=== PATIENT | female | born 1980 | race Caucasian/White ===

== ENCOUNTER 2016-12-23 04:18 | Inpatient (IN) | payer SELFPAY ==
[~2016-12-23] VITALS: Ht 172.7 cm; Wt 73.2 kg
[2016-12-23] VITALS (20 sets, daily range): BP systolic 71–106; BP diastolic 42–66
[~2016-12-23 04:18] MED LIST: CEFTIN500 MG PO; PERCOCET1 TA1 PO; PREDNISONE20 MG PO
--- NOTE | 2016-12-23 05:48 | ED ORDER SUMMARY ---
..... Patient: MARTA GREGORY OrderSheet [facility] VisitID: [id number] [address] [place] [address] 36y, F Registration Date/Time: 12/23/2016 ORDER SHEET Weight: 66.2 kg (stated) Allergies: No Known Drug Allergy GENERAL ORDERS: Chest 2V Urgent (04:32 12/23/2016 [facility] (Ack 4:39 CHategekimana) (5:54 JQuivey R.N.) Weave Defect Charting Clerk (Continuous) (04:12/23/2016 [facility]) (5:05 JQuivey R.N.) UA-Culture if indicated Urgent (04:12/23/2016 [facility] (Ack 4:37 CHategekimana) (5:05 JQuivey R.N.) Cardiac Panel Stat (04:12/23/2016 [facility] (Ack 4:37 CHategekimana) (5:05 JQuivey R.N.) BNP Urgent (04:12/23/2016 PHidchinson DO) (Ack 4:37 CHategekimana) (5:05 JQuivey R.N.) D-Dimer Urgent (04:12/[facility]/2016 [facility] (Ack 4:38 CHategekimana) (5:05 JQuivey R.N.) Amylase Urgent (04:12/23/2016 [facility] (Ack 4:38 CHategekimana) (5:05 JQuivey R.N.) TSH Urgent (04:12/23/2016 PHidchinson DO) (Ack 4:38 CHategekimana) (5:05 JQuivey R.N.) Ethyl Alcohol Urgent (04:12/23/2016 [facility] (Ack 4:39 CHategekimana) (5:05 JQuivey R.N.) Urine Drug Screen Urgent (04:12/23/2016 [facility]) (Ack 4:39 CHategekimana) (5:05 JQuivey R.N.) Urine Urgent (04:33 12/23/2016 [facility] (Ack 4:39 CHategekimana) (5:05 JQuivey R.N.) Pulse oximeter (04:33 12/23/2016 [facility]) (5:05 JQuivey R.N.) EKG - ER Stat (04:33 12/23/2016 [facility]) (Ack 4:37 CHategekimana) (4:56 [facility] ER V Belt Coverer) Vitals (04:33 12/23/2016 [facility]) (4:40 JQuivey R.N.) Rapid Influenza Screen (Nasal Pharyngeal) (BACK OFFICE MEDICAL ASSISTANT swab) Urgent (04:38 12/23/2016 [facility]) (Ack 4:39 CHategekimana) (4:40 JQuivey R.N.) Blood Culture (No) (N/A) Urgent (05:27 12/23/2016 [facility]) (Ack 5:30 CHategekimana) (6:08 [facility] ESR Urgent (05:28 12/23/2016 [facility]) (Ack 5:30 CHategekimana) (5:54 JQuivey R.N.) CRP Urgent (05:28 12/23/2016 [facility]) (Ack 5:31 CHategekimana) (5:54 JQuivey R.N.) Call (Place call to): (Dr Loera) (05:54 12/23/2016 [facility]) (6:11 JQuivey R.N.) Call (Place call to): (Dr Pelayo) (07:33 12/23/2016 [facility]) (7:45 LNations ER Tech1) Lactate, Serum Urgent (07:36 12/23/2016 [facility]) (Ack 7:43 LNations ER Tech1) PCT (Procalcitonin) Urgent (07:36 12/23/2016 [facility]) (Ack 7:43 LNations ER Tech1) MEDICATION ORDERS: DuoNeb Neb Tx 1 unit dose (NOW) (05:51 12/23/2016 [facility]) (6:10 Tobias ER V Belt Coverer) Acetaminophen PO 1,000 mg (NOW) (08:13 12/23/2016 [facility]) (8:27 LWhalen R.N.) Levophed Drip IV : 0.5-12 mcg/min (09:31 12/23/2016 [facility]) (10:22 LWhalen R.N.) IV FLUIDS: IV NS : initial bolus 1000 mL (1000 mL/hr), then 250 mL/hr for X4 (NOW) (04:32 12/23/2016 [facility]) (Ack 4:43 JQuivey R.N.) (4:58 JQuivey R.N.) Zofran IV 4 mg (NOW) (04:33 12/23/2016 [facility]) (Ack 4:43 JQuivey R.N.) (4:58 JQuivey R.N.) Dilaudid IV 1 mg (NOW) (04:42 12/23/2016 [facility]) (Ack 4:43 JQuivey R.N.) (4:58 JQuivey R.N.) Dilaudid IV 0.5 mg (HIGH ALERT MEDICATION, NOW) (05:26 12/23/2016 [facility]) (Ack 5:27 JQuivey R.N.) (5:32 JQuivey R.N.) Ceftriaxone IV 2 gm/50mL (after blood cultures) (05:30 12/23/2016 [facility]) (Ack 5:32 JQuivey R.N.) (6:13 JQuivey R.N.) Azithromycin IV 500 mg/250 mL (NOW) (05:47 12/23/2016 [facility]) (Ack 5:57 JQuivey R.N.) (6:36 JQuivey R.N.) Dilaudid IV 0.5 mg (HIGH ALERT MEDICATION, NOW) (07:36 12/23/2016 [facility]) (Ack 8:50 LWhalen R.N.) (Cancelled: low bp10:23 LWhalen R.N.) ORDER SHEET NOTES: [Electronically signed by Philippe Suazo DO (09:56 12/23/2016)] [Electronically signed by Sho Tidwell R.N. (18:37 12/23/2016)] [Electronically locked/signed by Sho Tidwell R.N. (18:37 12/23/2016)]
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
--- NOTE | 2016-12-23 05:48 | ED ORDER SUMMARY ---
..... Patient: MARTA GREGORY OrderSheet [facility] VisitID: [id number] [address] [place] [address] 36y, F Registration Date/Time: 12/23/2016 ORDER SHEET Weight: 66.2 kg (stated) Allergies: No Known Drug Allergy GENERAL ORDERS: Chest 2V Urgent (04:32 12/23/2016 [facility] (Ack 4:39 CHategekimana) (5:54 JQuivey R.N.) Side Trimmer (Continuous) (04:12/23/2016 [facility] (5:05 JQuivey R.N.) UA-Culture if indicated Urgent (04:12/23/2016 [facility] (Ack 4:37 CHategekimana) (5:05 JQuivey R.N.) Cardiac Panel Stat (04:12/23/2016 [facility]) (Ack 4:37 CHategekimana) (5:05 JQuivey R.N.) BNP Urgent (04:12/23/2016 PHnhchinson DO) (Ack 4:37 CHategekimana) (5:05 JQuivey R.N.) D-Dimer Urgent (04:12/23/2016 [facility] (Ack 4:38 CHategekimana) (5:05 JQuivey R.N.) Amylase Urgent (04:12/23/2016 [facility] (Ack 4:38 CHategekimana) (5:05 JQuivey R.N.) TSH Urgent (04:12/23/2016 PHnhchinson DO) (Ack 4:38 CHategekimana) (5:05 JQuivey R.N.) Ethyl Alcohol Urgent (04:12/23/2016 [facility]) (Ack 4:39 CHategekimana) (5:05 JQuivey R.N.) Urine Drug Screen Urgent (04:12/23/2016 [facility] (Ack 4:39 CHategekimana) (5:05 JQuivey R.N.) Urine Urgent (04:33 12/23/2016 [facility] (Ack 4:39 CHategekimana) (5:05 JQuivey R.N.) Pulse oximeter (04:33 12/23/2016 [facility]) (5:05 JQuivey R.N.) EKG - ER Stat (04:33 12/23/2016 [facility]) (Ack 4:37 CHategekimana) (4:56 [facility] ER Rice Dryer Mechanic) Vitals (04:33 12/23/2016 [facility]) (4:40 JQuivey R.N.) Rapid Influenza Screen (Nasal Pharyngeal) (EMT P swab) Urgent (04:38 12/23/2016 [facility]) (Ack 4:39 CHategekimana) (4:40 JQuivey R.N.) Blood Culture (No) (N/A) Urgent (05:27 12/23/2016 [facility]) (Ack 5:30 CHategekimana) (6:08 [facility] Rice Dryer Mechanic[facility] ESR Urgent (05:28 12/23/2016 [facility]) (Ack 5:30 CHategekimana) (5:54 JQuivey R.N.) CRP Urgent (05:28 12/23/2016 [facility]) (Ack 5:31 CHategekimana) (5:54 JQuivey R.N.) Call (Place call to): (Dr Loera) (05:54 12/23/2016 [facility]) (6:11 JQuivey R.N.) Call (Place call to): (Dr Pelayo) (07:33 12/23/2016 [facility]) (7:45 LNations ER Tech1) Lactate, Serum Urgent (07:36 12/23/2016 [facility]) (Ack 7:43 LNations ER Tech1) PCT (Procalcitonin) Urgent (07:36 12/23/2016 [facility]) (Ack 7:43 LNations ER Tech1) MEDICATION ORDERS: DuoNeb Neb Tx 1 unit dose (NOW) (05:51 12/23/2016 [facility]) (6:10 Tobias ER Rice Dryer Mechanic) Acetaminophen PO 1,000 mg (NOW) (08:13 12/23/2016 [facility]) (8:27 LWhalen R.N.) Levophed Drip IV : 0.5-12 mcg/min (09:31 12/23/2016 [facility]) (10:22 LWhalen R.N.) IV FLUIDS: IV NS : initial bolus 1000 mL (1000 mL/hr), then 250 mL/hr for X4 (NOW) (04:32 12/23/2016 [facility]) (Ack 4:43 JQuivey R.N.) (4:58 JQuivey R.N.) Zofran IV 4 mg (NOW) (04:33 12/23/2016 [facility]) (Ack 4:43 JQuivey R.N.) (4:58 JQuivey R.N.) Dilaudid IV 1 mg (NOW) (04:42 12/23/2016 [facility]) (Ack 4:43 JQuivey R.N.) (4:58 JQuivey R.N.) Dilaudid IV 0.5 mg (HIGH ALERT MEDICATION, NOW) (05:26 12/23/2016 [facility]) (Ack 5:27 JQuivey R.N.) (5:32 JQuivey R.N.) Ceftriaxone IV 2 gm/50mL (after blood cultures) (05:30 12/23/2016 [facility]) (Ack 5:32 JQuivey R.N.) (6:13 JQuivey R.N.) Azithromycin IV 500 mg/250 mL (NOW) (05:47 12/23/2016 [facility]) (Ack 5:57 JQuivey R.N.) (6:36 JQuivey R.N.) Dilaudid IV 0.5 mg (HIGH ALERT MEDICATION, NOW) (07:36 12/23/2016 [facility]) (Ack 8:50 LWhalen R.N.) (Cancelled: low bp10:23 LWhalen R.N.) ORDER SHEET NOTES: [Electronically signed by Philippe Suazo DO (09:56 12/23/2016)] [Electronically signed by Sho Tidwell R.N. (18:37 12/23/2016)] [Electronically locked/signed by Sho Tidwell R.N. (18:37 12/23/2016)]
--- NOTE | 2016-12-23 05:48 | ED NURSING NOTES ---
Clinical Report - Nurses [facility] [address] [place] [address] 12/23/2016 4:18 Patient: MARTA GREGORY TRIAGE Triage time 04:26. Acuity: LEVEL 3. Chief Complaint: CHILLS, HEADACHE, NASAL CONGESTION, CHEST PAIN and COUGH (bilateral shoulder pain). 04:31. Alert. SEPSIS SCREEN: Sepsis Screen. Negative (no infection suspected/documented). DEBI COMA SCORE: Debi Coma Scale: 15- eyes open spontaneously (4); best verbal response- oriented x 4 (5); best motor response- obeys commands (6). --04:31 Felipe Verma R.N. 04:26 12/23/16. BP: 99/83. HR: 113. RR: 28. O2 saturation: 100% on room air. Temp: 97.7 F (oral). Pain level now: 07/14. --04:31 Felipe Verma R.N. Weight: 66.2 kg stated. Height/Length: 69 inches Per Patient. BMI: 21.6. --04:30 Felipe Verma R.N. Medications None. --04:30 Felipe Verma R.N. Medication/allergy information source: the patient. --04:31 Felipe Verma R.N. Allergies No Known Drug Allergy. --04:30 Felipe Verma R.N. History Arrived by private vehicle. Historian: patient. Accompanied by friend. Primary physician (None). Onset. (Saturday). Treatment [employer]: Took Tylenol and ibuprofen. (Gabapentin, Methacarbamol). PAST MEDICAL HX: Immunizations: up-to-date. Last normal menstrual period was 3 weeks ago. SOCIAL HX: Current every day light tobacco smoker- less than 1/2 a pack per day. Occasional alcohol use. No drug use. No infectious disease exposure. ABUSE ASSESSMENT: No report of abuse. FALL RISK ASSESSMENT: Fall risk assessment completed. No fall risk identified. NUTRITIONAL RISK ASSESSMENT: The nutritional risk assessment revealed no deficiencies. FUNCTIONAL ASSESSMENT: Functional assessment: no impairments noted. LEARNING NEEDS ASSESSMENT: The learning needs assessment revealed no barriers. SKIN INTEGRITY ASSESSMENT: Skin integrity risk assessment completed. No skin integrity risk identified. --04:31 Felipe Verma R.N. PROBLEMS: Pneumonia. Rhabdomyolysis. Sciatica. Cervical Strain. Myofascial Strain. Pyelonephritis. --04:30 Felipe Verma R.N. ADDITIONAL SURGERIES: no known surgeries. Interventions ID band on patient. To treatment room. --04:31 Felipe Verma R.N. PHYSICAL ASSESSMENT 04:32. To room via wheelchair. Patient gowned. GENERAL / NEURO / PSYCH: Alert. Oriented X 4. HEENT: No facial asymmetry noted. Mucous membranes are pink. RESPIRATORY: Respirations not labored. SKIN: Skin intact. Skin is warm and dry. Normal skin turgor. --04:32 Felipe Verma R.N. NURSING PROGRESS NOTES 04:32. Head of bed elevated. Two patient identifiers checked. Call light placed in reach. Bed placed in lowest position. Brakes of bed on. Patient ready for evaluation- chart flagged. --04:32 Felipe Verma R.N. 04:45 Patient to restroom to provide urine sample. --04:46 Felipe Verma R.N. 04:46. Patient ID band checked for patient name and birthdate: patient confirmed. Clean catch urine collected with return of yellow-colored cloudy urine; sample sent to lab for urinalysis. Specimen labeled in the presence of the patient. --04:49 Felipe Verma R.N. 04:50 12/23/2016 Site #1 started via IV in the right antecubital space with an 20g angiocath, with aseptic technique and good blood return; one attempt. Blood drawn: rainbow set. Labeled in the presence of the patient and sent to the lab. --04:55 Felipe Verma R.N. <<STRICKEN ENTRY-- 04:51 12/23/2016 Started bag #1 1000 mL IV Fluids IV NS (Saline); at 1000 mL/hr over 2 hour(s) via site #1 via IV pump. IV patency established. IV site checked: no pain, redness, or swelling. IV flushed thoroughly pre- and post-medication administration. --04:58 Felipe Verma R.N. --END STRIKE>> Correction. --06:43 Felipe Verma R.N. 04:52 12/23/2016 Zofran (Ondansetron HCl) IVP 4 mg given over 2 minute(s) via site #1. Allergies verified and confirmed 5 rights. IV patency established. IV site checked: no pain, redness, or swelling. IV flushed thoroughly pre- and post-medication administration. --04:58 Felipe Verma R.N. 04:54 12/23/2016 Dilaudid (HYDROmorphone HCl PF) IVP 1 mg given over 2 minute(s) via site #1. Allergies verified, confirmed 5 rights and sedative warning given to the patient. IV patency established. IV site checked: no pain, redness, or swelling. IV flushed thoroughly pre- and post-medication administration. --04:58 Felipe Verma R.N. EKG time: (5). EKG was performed by a tech and shown to the ED physician. --05:14 Felipe Verma R.N. 04:51 12/23/2016 Started bag #1 1000 IV Fluids IV NS (Saline); at 1000 mL/hr over 1 hour(s) via site #1 via IV pump. IV patency established. IV site checked: no pain, redness, or swelling. IV flushed thoroughly pre- and post-medication administration. --06:43 Felipe Verma R.N. 05:30 12/23/2016 Dilaudid (HYDROmorphone HCl PF) IVP 0.5 mg given over 2 minute(s) via site #1. Allergies verified, confirmed 5 rights and sedative warning given to the patient. IV patency established. IV site checked: no pain, redness, or swelling. IV flushed thoroughly pre- and post-medication administration. --05:32 Felipe Verma R.N. 05:35. Patient transported to radiology by stretcher with tech. --05:36 Felipe Verma R.N. 05:40. Patient returned from radiology by stretcher with tech. --05:56 Felipe Verma R.N. 05:53. Patient ID band checked for patient name and birthdate: patient confirmed. Blood samples drawn from the right antecubital space peripheral IV site with syringe by nurse ; labeled in presence of the patient and sent to lab: blood culture (1st set). Initial blood discarded and additional blood sent to lab. --05:56 Felipe Verma R.N. 06:02 RT with pt for eval and breathing treatment. --06:07 Felipe Verma R.N. 06:10 12/23/2016 Duoneb (Ipratropium-Albuterol) Neb TX Nebulizer 1 unit dose given. Given by the respiratory therapist. Allergies verified and confirmed 5 rights. --06:10 Michael Mcgee, MADELINE Medical Services Coordinator 06:03. Patient ID band checked for patient name and birthdate: patient confirmed. Blood samples drawn from the left antecubital space with 22g butterfly by tech ; labeled in presence of the patient and sent to lab: blood culture (2nd set). --06:11 Felipe Verma R.N. 06:10 12/23/2016 Started 2 gm of Ceftriaxone IVPB in bag #1 50 mL; at 150 mL/hr over 20 minute(s) via site #1 via IV pump. Allergies verified and confirmed 5 rights. IV patency established. IV site checked: no pain, redness, or swelling. IV flushed thoroughly pre- and post-medication administration. --06:13 Felipe Verma R.N. 06:15 12/23/16. BP: 91/52. HR: 127. RR: 22. O2 saturation: 96% on room air. --06:15 Felipe Verma R.N. 06:23 Informed the patient that Dr. Suazo is very concerned about her not wanting to stay and be admitted and that he would be in again to talk to her. I asked her to try to stay calm and listen to what the has to say so she can make an informed decision. Also told her that I understand her concerns about her kids and her new job, but that she wouldn't being doing her kids any favors if she went home and . --06:35 Felipe Verma R.N. 06:31 12/23/2016 Ceftriaxone IVPB Discontinued: bag #1 infused. Total amount infused: 50 mL. IV patency established. IV site checked: no pain, redness, or swelling. IV flushed thoroughly. --06:35 Felipe Verma R.N. 06:33 12/23/2016 Started 500 mg of Azithromycin IVPB in bag #1 260 mL; at 255 mL/hr over 1 hour(s) via site #1 via IV pump. Allergies verified and confirmed 5 rights. IV patency established. IV site checked: no pain, redness, or swelling. IV flushed thoroughly pre- and post-medication administration. --06:36 Felipe Verma R.N. 06:41 12/23/2016 IV Fluids IV NS Bag Change: bag #1 infused. Total amount infused: 1000. STARTED bag #2 at 250 mL/hr via IV pump. IV patency established. IV site checked: no pain, redness, or swelling. IV flushed thoroughly. --06:44 Felipe Verma R.N. 07:06. Care transferred and report given (Sho EDRN). --07:06 Felipe Verma R.N. ( H/P forms on chart). --07:51 Glenna Diaz, [facility] 07:20 12/23/16. ( Spoke with patient extensively on the dangers of going home attempted to assisted patient with work and current stressors so that patient can stay and receive care. Patient very resistant to any suggestions.). --08:45 Sho Tidwell R.N. 07:40 12/23/16. ( Patient decided to stay for treatment note given to send to work. Patient initially resistant to care offered but will cooperate with time.). --08:48 Sho Tidwell R.N. 07:45 12/23/16. ( Patient moved to room 2 for closer observation and unstable BP's. Patient c/o severe rib and abdominal pains.). --08:49 Sho Tidwell R.N. 08:16 12/23/2016 Site #2 started via IV wrist with an 20g angiocath, with aseptic technique and good blood return; one attempt. Saline lock flushed with 10 mL saline (lactate drawn). --08:41 Sho Tidwell R.N. 08:17 12/23/2016 Acetaminophen (APAP) PO Capsules 1000 mg given. Allergies verified and confirmed 5 rights. --08:27 Sho Tidwell R.N. 08:28 12/23/2016 Site #3 started via IV in the left external jugular with an 18g angiocath, with aseptic technique and good blood return; one attempt. Saline lock flushed with 10 mL saline (Done by Dr. Morales.). --08:43 Sho Tidwell R.N. 08:31 12/23/2016 IV Fluids IV NS Bag Change: bag #2 completed. Total amount infused: 1000. STARTED bag #3 (1000 mL) at 999 mL/hr via IV pump. Confirmed 5 rights. IV patency established. IV site checked: no pain, redness, or swelling. IV flushed thoroughly. (received verbal order from ERMD to infuse 3rd liter of fluid). --08:32 Marissa Chan R.N. 09:05 12/23/16. BP: 73/34. HR: 119. RR: 20. O2 saturation: 94% on nasal cannula at 3 liters/minute. Pain level now: 07/14. 08:45 12/23/16. BP: 86/37. HR: 118. RR: 32. O2 saturation: 92% on nasal cannula at 3 liters/minute. Pain level now: 8/10. Additional comments: aware . 08:44 12/23/16. BP: 80/39. HR: 120. RR: 24. O2 saturation: 95% on nasal cannula at 3 liters/minute. Additional comments: aware of BP . 08:25 12/23/16. BP: 83/42. HR: 124. RR: 24. O2 saturation: 93% on nasal cannula at 3 liters/minute. Pain level now: 04/13. 08:10 12/23/16. BP: 109/52. HR: 136. RR: 22. O2 saturation: 92% on nasal cannula at 2 liters/minute. 08:05 12/23/16. BP: 79/53. HR: 128. RR: 20. O2 saturation: 93% on nasal cannula at 2 liters/minute. Temp: 99.8 F. 07:50 12/23/16. BP: 77/37. HR: 127. RR: 20. O2 saturation: 95% on nasal cannula at 2 liters/minute. 07:45 12/23/16. BP: 97/49. HR: 134. RR: 18. O2 saturation: 93% on nasal cannula at 2 liters/minute. 07:40 12/23/16. BP: 77/39. HR: 127. RR: 18. O2 saturation: 93% on room air. 07:30 12/23/16. BP: 82/57. HR: 132. RR: 20. O2 saturation: 94% on room air. Temp: 98.4 F. Pain level now: 06/13. --09:11 Sho Tidwell R.N. ( pt c/o sob and difficulty breathing called RT to evaluate and he is here at bedside and evaluated patient and put her on an nonrebreather at 12L.). --09:11 Sho Tidwell R.N. 09:18 12/23/16. BP: 90/32. HR: 114. RR: 24. O2 saturation: 99% on non-rebreather at 12 liters/minute. Pain level now: 06/13. --09:19 Sho Tidwell R.N. 09:45 12/23/16. BP: 72/34. HR: 115. RR: 25. O2 saturation: 98% on non-rebreather at 12 liters/minute. Pain level now: 06/13. 09:30 12/23/16. BP: 76/35. HR: 115. RR: 21. O2 saturation: 100% on non-rebreather at 12 liters/minute. 09:20 12/23/16. BP: 71/33. HR: 114. RR: 24. O2 saturation: 99% on non-rebreather at 12 liters/minute. --10:19 Sho Tidwell R.N. 10:07 12/23/2016 Started 0.5 mcg of Levophed (Norepinephrine Bitartrate) Drip IV in bag #1 250 mL; at 0.5 mcg/min over 1 hour(s) via site #3 via IV pump. Allergies verified and confirmed 5 rights. IV patency established. IV site checked: no pain, redness, or swelling. IV flushed thoroughly pre- and post-medication administration. --10:22 Sho Tidwell R.N. 10:14 12/23/2016 IV Fluids IV NS Discontinued: bag #3 infused upon transfer. Total amount infused: 1000 mL. IV patency established. IV site checked: no pain, redness, or swelling. IV flushed thoroughly. --10:24 Sho Tidwell R.N. DISPOSITION / DISCHARGE Departure time: 0950. Admitted to the Critical Care Unit (305). ( Report given to Delores JACOBS and was asked to start Norepinephrine drip daniel. Pharmacy called to obtain drip and drip started before transfer.). --10:26 Sho Tidwell R.N. 09:45 12/23/16. BP: 72/34. HR: 115. RR: 25. O2 saturation: 98% on non-rebreather at 12 liters/minute. Pain level now: 06/13. --10:26 Sho Tidwell R.N. Locked/Released at 12/23/2016 18:37 by Sho Tidwell R.N.
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
--- NOTE | 2016-12-23 06:22 | DIAGNOSTIC IMAGING REPORT ---
PROCEDURE: XR CHEST 2 VIEW INDICATION: COUGH TECHNIQUE: PA and lateral views. COMPARISON: None. FINDINGS: Moderate to severe bibasilar pneumonia with mild volume loss. Mid and upper lungs clear. Heart and mediastinum are normal. Thorax is normal. IMPRESSION: 1. Moderate to severe bibasilar pneumonia.
--- NOTE | 2016-12-23 15:21 | DIAGNOSTIC IMAGING REPORT ---
PROCEDURE: US KIDNEY/RENAL COMPLETE INDICATION: Pneumonia. Urinary tract infection. TECHNIQUE: Transabdominal scans of the kidneys with calculation of resistive indices. Prevoid and postvoid bladder volumes were obtained. COMPARISON: Compared CT abdomen and pelvis on 09/21/2014. FINDINGS: RIGHT: Right kidney is of normal size (13.1 x 4.8 cm) with normal cortical thickness. No evidence of mass or hydronephrosis. Right renal resistive indices are normal (upper pole 0.60, mid pole 0.55, inferior pole 0.55). LEFT: Left kidney is of normal size (11.4 x 4.5 cm with normal cortical thickness (1.4 cm). No evidence of mass or hydronephrosis. Left renal resistive indices are normal (upper pole 0.62, mid pole 0.58, intra pole 0.59). BLADDER: Whitting[place] catheter in decompressed urinary bladder. Findings suggest a 1.8 cm gallstone at the neck of the gallbladder (incidental finding, previously documented). IMPRESSION: 1. Normal kidneys. No evidence of urinary tract obstruction. 2. There is a 1.8 cm gallstone at the neck of the gallbladder (previously documented).
--- NOTE | 2016-12-23 16:52 | Progress Note ---
Subjective General Admission History and Physical Examination Patient Name: Angela Rodriguez Admission Date: December 23, 2016 Primary Care Provider: None Attending Physician: Tyler Pelayo M.D. Admitting Physician: Tyler Pelayo M.D. SUBJECTIVE Historian: Patient and family Reliability: Fair Chief Complaint: Shortness of breath History of Present Illness: The patient is a 36-year-old white female with a significant past medical history of trigeminal neuralgia, sciatica, cervical strain, who presented to [facility] emergency department on the day of admission secondary to complaints of shortness of breath. [facility] ER evaluation was consistent with bilateral lower lobe pneumonia-rule out sepsis. Secondary to the above, the patient was admitted by Tyler Pelayo M.D. for further evaluation and treatment. PAST MEDICAL HISTORY Illnesses: 1. No significant Allergies: 1. None Medications: 1. Ibuprofen 800 mg by mouth every 8 hours when necessary pain 2. Tylenol dosage unknown Surgery: 1. None Injuries: 1. No significant Hospitalizations: 1. Childbirth FAMILY HISTORY Parents: 1. Father, , alcohol abuse cirrhosis, hepatic carcinoma 2. Mother, , hepatitis C, cirrhosis Siblings: 1. The patient has 4 siblings all of which are in good health Children: 1. The patient has 3 children age 11, 9, 4, all of which are in good health Other significant family history: nnone SOCIAL HISTORY 1. Marital Status: 2. Confucianist: None 3. Education: High school 4. Employment History: [email or web address] 5. Occupational health exposures: None HABITS 1. Tobacco: One quarter pack per day, ongoing smoking 2. Drugs: None 3. Alcohol: 2 ounces 2 times per month 4. Caffeine: One cup per day HEALTH SUPERVISION Item/Test 1. No recent IMMUNIZATIONS: 1. Pneumococcal: no previous 2. Influenza: No recent 3. Tetanus: Unknown REVIEW OF SYSTEMS Remarkable for those things stated in the history of present illness and past medical history. Seventeen point review of system completed with the following notable findings: General: Fatigue, weakness, chest pain Respiratory: Cough, shortness of breath, pleuritic chest pain Physical Exam Vital Signs / I&Os Vital Signs Date Time Temp Pulse Resp B/P Pulse O2 O2 Flow FiO2 Ox Delivery Rate 12/23 1611 98.4 112 23 98/51 98 Nasal 2.0 Cannula 12/23 1516 101 21 106/66 97 Nasal 2.0 Cannula 12/23 1412 106 24 101/55 98 Nasal 2.0 Cannula 12/23 1400 2.0 12/23 1317 111 19 101/61 97 Nasal 2.0 Cannula 12/23 1246 119 31 83/43 97 Nasal 2.0 Cannula 12/23 1235 2.0 12/23 1217 108 35 93/46 98 Nasal 2.0 Cannula 12/23 1130 107 21 96/53 98 Nasal 2.0 Cannula 12/23 1100 85/49 12/23 1044 114 20 71/42 96 Nasal 2.0 Cannula 12/23 1030 114 29 84/47 96 Nasal 2.0 Cannula 12/23 1024 115 20 82/47 95 Nasal 2.0 Cannula 12/23 1005 99.0 122 29 74/44 93 Nasal 2.0 Cannula 12/23 1000 115 32 83/42 95 Nasal 2.0 Cannula General Appearance Alert, Oriented X3, Cooperative, Moderate distress HEENT Atraumatic, PERRLA, EOMI, Moist mucous membranes Lungs Normal air movement, Basilar rales present. Neck Supple, No JVD Cardiovascular Normal S1 and S2, No murmurs, gallops, rubs, tachycardic Abdomen Normal bowel sounds, Soft, No tenderness Extremities No cyanosis, No clubbing, No edema Neurological Normal speech, Normal tone, Cranial nerves intact, No lateralizing signs Psych/Mental Status Mental status normal, Mood normal LAB Results Laboratory Tests 12/23 12/23 12/23 12/23 12/23 1140 1140 1105 0754 0500 Chemistry Plasma Sodium (136 - 145 mmol/L) 139 Plasma Potassium (3.5 - 5.1 mmol/L) 2.8 Plasma Chloride (98 - 107 mmol/L) 105 CO2 (Enzymatic) (21 - 32 mmol/L) 18 BUN (7 - 18 mg/dL) 28 Creatinine (0.6 - 1.3 mg/dL) 1.7 Est GFR ( Amer) (mL/min) 43.81 Est GFR (Non-Af Amer) (mL/min) 36.14 Glucose (70 - 110 mg/dL) 127 Lactic Acid (0.4 - 2.0 mmol/L) 0.8 0.8 Plasma Calcium (8.5 - 10.1 mg/dL) 6.9 Plasma Magnesium (1.8 - 2.4 mg/dL) 1.4 Total Bilirubin (0.0 - 1.0 mg/dL) 0.4 AST (15 - 37 U/L) 12 ALT (12 - 78 U/L) 12 Alkaline Phosphatase (46 - 116 U/L) 89 Creatine Kinase (24 - 260 U/L) 105 Cancelled Total Protein (6.4 - 8.2 g/dL) 5.8 Albumin (3.3 - 5.0 g/dL) 2.0 Procalcitonin (0 - 0.5 ng/mL) 20.9 Coagulation INR (0.8 - 1.2) 1.1 APTT (24 - 34 SECONDS) 37 12/23 12/23 12/23 0500 0500 0500 Chemistry C-Reactive Protein (0.0 - 0.9 mg/dL) > 12.0 B-Natriuretic Peptide (5 - 100 pg/ml) 72 Amylase (25 - 115 U/L) 20 TSH 3rd Generation (0.34 - 3.74 uIU/mL) 1.170 Hematology ESR Westergren (0 - 20 mm/hr) 101 Toxicology Plasma/Serum Ethyl Alc (3 - 10 mg/dL) <3 Urines Urine Test NEGATIVE 12/23 0500 Chemistry Plasma Sodium (136 - 145 mmol/L) 133 Plasma Potassium (3.5 - 5.1 mmol/L) 3.2 Plasma Chloride (98 - 107 mmol/L) 96 CO2 (Enzymatic) (21 - 32 mmol/L) 23 BUN (7 - 18 mg/dL) 30 Creatinine (0.6 - 1.3 mg/dL) 1.9 Est GFR ( Amer) (mL/min) 38.53 Est GFR (Non-Af Amer) (mL/min) 31.79 Glucose (70 - 110 mg/dL) 102 Plasma Calcium (8.5 - 10.1 mg/dL) 8.6 Plasma Magnesium (1.8 - 2.4 mg/dL) 2.0 Total Bilirubin (0.0 - 1.0 mg/dL) 0.5 AST (15 - 37 U/L) 17 ALT (12 - 78 U/L) 20 Alkaline Phosphatase (46 - 116 U/L) 114 Creatine Kinase (24 - 260 U/L) 155 Troponin (0.00 - 1.5 ng/mL) <0.05 Total Protein (6.4 - 8.2 g/dL) 7.9 Albumin (3.3 - 5.0 g/dL) 3.0 Coagulation D-Dimer, Quantitative (0.27 - 0.52 ug/mLFEU) 3.25 Hematology WBC (4.5 - 11.5 K/uL) 29.2 RBC (4.00 - 5.20 M/uL) 4.11 Hgb (12.0 - 16.0 gm/dL) 12.1 Hct (36.0 - 46.0 %) 36.5 MCV (80 - 100 fL) 89 MCH (26 - 34 pg) 30 RDW (11.6 - 14.8 %) 15.6 Neut % (Auto) (50 - 75 %) 44 Lymph % (Auto) (25 - 40 %) 7 Wilkin % (Auto) (3 - 14 %) 1 Eos % (Auto) (0 - 4 %) 0 Baso % (Auto) (0 - 2 %) 0 Band Neutrophils % (0 - 8 %) 48 Metamyelocytes % (0 - 1 %) 0 Myelocytes (0 - 1 %) 0 Other Cell Type 0 Plt Count, EDTA (150 - 400 K/uL) 240 Anisocytosis (manual) 1+ PUBS MCHC (31 - 37 g/dL) 33 Toxicology Urine Opiates Screen (NEGATIVE) NEGATIVE Urine Methadone Screen (NEGATIVE) NEGATIVE Ur Barbiturates Screen (NEGATIVE) NEGATIVE U Amphetamin/Meth Scrn (NEGATIVE) NEGATIVE MDMA (Ecstasy) Screen (NEGATIVE) NEGATIVE U Benzodiazepines Scrn (NEGATIVE) NEGATIVE Urine Cocaine Screen (NEGATIVE) NEGATIVE U Cannabinoids Screen (NEGATIVE) NEGATIVE Urines Urine Color YELLOW Urine Appearance CLEAR Urine pH (5.0 - 8.0) 5.5 Ur Specific [place] (1.010 - 1.030) 1.020 Urine Protein (NEGATIVE) 2+ Urine Ketones (NEGATIVE) NEGATIVE Urine Blood (NEGATIVE) 2+ Urine Nitrite (NEGATIVE) POSITIVE Urine Bilirubin (NEGATIVE) NEGATIVE Urine Urobilinogen (0.2 - 1.0 EU/dL) 1.0 Ur Leukocyte Esterase (NEGATIVE) POSITIVE Urine RBC (0 - 1 rbc/hpf) 3-5 Urine WBC (0 - 1 wbc/hpf) 5-10 Ur Epithelial Cells (0 - 5 EPI/hpf) 3-5 Urine Bacteria (NONE SEEN) MANY (4+) Urine Glucose (NEGATIVE) NEGATIVE Urine Comment CULTURE INDICATED Microbiology Date/Time Procedure - Status Source Growth 02/19 0605 Blood Culture - RECD BLOOD 12/23 0553 Blood Culture - RECD BLOOD 12/23 0500 Urine Culture - RECD URINE CC 12/23 0437 Influenza Screen - COMP NASALPHAR Imaging Chest X-Ray IMPRESSION: 1. Moderate to severe bibasilar pneumonia. Dictated by: RADHA COLIN MD D: BERE;12/23/16 0621 Assessment and Plan Problem List 1. Pneumonia Plan -Rocephin/zithromax/vancomycin -blood cultures positive for gram-positive cocci -Urine for strep pneumonia antigen pending 2. Systemic inflammatory response syndrome (SIRS) Plan -patient positive for Sirs -Findings suggestive of sepsis -IV fluid/pressure support --Serial lactate 3. UTI (urinary tract infection) Status Acute Onset Date Unknown Plan -findings of UTI -Rocephin as noted above -Urine C&S pending 4. Hypokalemia Status Acute Onset Date Unknown Plan -hypokalemia -IV/oral supplementation -Monitor 5. Hypomagnesemia Status Acute Onset Date Unknown Plan -hypomagnesemia noted -IV/by mouth supplementation Current status: Critical, unstable Anticipated discharge date: Anticipated discharge 3-4 days Anticipated discharge placement: Home Patient care time: Time spent in chart review, patient interview, physical exam, CPOE, and care documentation: 70 minutes Visit to patient today: 2 Complexity of care: High E&M Codes Admission: Inpt-High/94315 Complexity of care: High E&M Codes Admission: Inpt-High/34121
--- NOTE | 2016-12-23 18:37 | ED DISCHARGE INSTRUCTIONS ---
Patient: MARTA GREGORY General Instructions [facility] VisitID: [id number] [address] [place] [place] [address] 36y, F Registration Date/Time: 12/23/2016 Bacterial and lobar pneumonia. Vital signs recorded and reviewed; empiric antibiotics given in the ED. Mild acute renal failure. Severe leukocytosis with bandemia. Acute urinary tract infection with cystitis and pyelonephritis. (Electronically signed by Philippe Suazo DO 12/23/2016 9:56)
--- NOTE | 2016-12-23 18:37 | ED DISCHARGE INSTRUCTIONS ---
Patient: MARTA GREGORY General Instructions [facility] VisitID: [id number] [address] [place] [place] [address] 36y, F Registration Date/Time: 12/23/2016 Bacterial and lobar pneumonia. Vital signs recorded and reviewed; empiric antibiotics given in the ED. Mild acute renal failure. Severe leukocytosis with bandemia. Acute urinary tract infection with cystitis and pyelonephritis. (Electronically signed by Philippe Suazo DO 12/23/2016 9:56)
--- NOTE | 2016-12-23 18:37 | ED MAR SUMMARY ---
..... Medication Administration Record [facility] [address] [place] [address] Patient: MARTA GREGORY Visit ID: [id number] 36y, F Weight: 66.2 kg Height/Length: 69 in BMI: 21.6 ALLERGIES: No Known Drug Allergy Start 04:51 12/23/2016 Felipe Verma R.N., Stop 10:14 12/23/2016 Sho Tidwell R.N. Medication Administered: IV NS (SALINE), Dose: IV Fluids over 1 hour(s), Rate: 1000 mL/hr, Dispensed: 1000 mL bag, Site: #1 right AC. Medication Ordered: IV NS : initial bolus 1000 mL (1000 mL/hr), then 250 mL/hr for X4 (NOW). Given 04:52 12/23/2016 Felipe Verma R.N. Medication Administered: ZOFRAN [IVP] (ONDANSETRON HCL), Dose: 4 mg IVP over 2 minute(s), Site: #1 right AC. Medication Ordered: Zofran IV 4 mg (NOW). Given 04:54 12/23/2016 Felipe Verma R.N. Medication Administered: DILAUDID [IVP] (HYDROMORPHONE HCL PF), Dose: 1 mg IVP over 2 minute(s), Site: #1 right AC. Medication Ordered: Dilaudid IV 1 mg (NOW). Given 05:30 12/23/2016 Felipe Verma R.N. Medication Administered: DILAUDID [IVP] (HYDROMORPHONE HCL PF), Dose: 0.5 mg IVP over 2 minute(s), Site: #1 right AC. Medication Ordered: Dilaudid IV 0.5 mg (HIGH ALERT MEDICATION, NOW). Start 06:10 12/23/2016 Felipe Verma R.N., Stop 06:31 12/23/2016 Felipe Verma R.N. Medication Administered: CEFTRIAXONE [IVPB], Dose: 2 gm IVPB over 20 minute(s), Rate: 150 mL/hr, Dispensed: 50 mL bag, Site: #1 right AC. Medication Ordered: Ceftriaxone IV 2 gm/50mL (after blood cultures). Given 06:10 12/23/2016 Michael Mcgee, ER Tobacco Stripper Hand Medication Administered: DUONEB [NEB TX] (IPRATROPIUM-ALBUTEROL), Dose: 1 unit dose Nebulizer Neb TX. Medication Ordered: DuoNeb Neb Tx 1 unit dose (NOW). Start 06:33 12/23/2016 Felipe Verma RLaurenN. Medication Administered: AZITHROMYCIN [IVPB], Dose: 500 mg IVPB over 1 hour(s), Rate: 255 mL/hr, Dispensed: 260 mL bag, Site: #1 right AC. Medication Ordered: Azithromycin IV 500 mg/250 mL (NOW). Given 08:17 12/23/2016 Sho Tidwell R.N. Medication Administered: ACETAMINOPHEN [PO] (APAP), Dose: 1000 mg Capsules PO. Medication Ordered: Acetaminophen PO 1,000 mg (NOW). Start 10:07 12/23/2016 Sho Tidwell RLaurenNLauren Medication Administered: LEVOPHED [IV DRIP] (NOREPINEPHRINE BITARTRATE), Dose: 0.5 mcg Drip IV over 1 hour(s), Rate: 0.5 mcg/min, Dispensed: 250 mL bag, Site: #3 left EJ. Medication Ordered: Levophed Drip IV : 0.5-12 mcg/min.
--- NOTE | 2016-12-23 18:37 | ED MAR SUMMARY ---
..... Medication Administration Record [facility] [address] [place] [address] Patient: MARTA GREGORY Visit ID: [id number] 36y, F Weight: 66.2 kg Height/Length: 69 in BMI: 21.6 ALLERGIES: No Known Drug Allergy Start 04:51 12/23/2016 Felipe Verma R.N., Stop 10:14 12/23/2016 Sho Tidwell R.N. Medication Administered: IV NS (SALINE), Dose: IV Fluids over 1 hour(s), Rate: 1000 mL/hr, Dispensed: 1000 mL bag, Site: #1 right AC. Medication Ordered: IV NS : initial bolus 1000 mL (1000 mL/hr), then 250 mL/hr for X4 (NOW). Given 04:52 12/23/2016 Felipe Verma R.N. Medication Administered: ZOFRAN [IVP] (ONDANSETRON HCL), Dose: 4 mg IVP over 2 minute(s), Site: #1 right AC. Medication Ordered: Zofran IV 4 mg (NOW). Given 04:54 12/23/2016 Felipe Verma R.N. Medication Administered: DILAUDID [IVP] (HYDROMORPHONE HCL PF), Dose: 1 mg IVP over 2 minute(s), Site: #1 right AC. Medication Ordered: Dilaudid IV 1 mg (NOW). Given 05:30 12/23/2016 Felipe Verma R.N. Medication Administered: DILAUDID [IVP] (HYDROMORPHONE HCL PF), Dose: 0.5 mg IVP over 2 minute(s), Site: #1 right AC. Medication Ordered: Dilaudid IV 0.5 mg (HIGH ALERT MEDICATION, NOW). Start 06:10 12/23/2016 Felipe Verma R.N., Stop 06:31 12/23/2016 Felipe Verma R.N. Medication Administered: CEFTRIAXONE [IVPB], Dose: 2 gm IVPB over 20 minute(s), Rate: 150 mL/hr, Dispensed: 50 mL bag, Site: #1 right AC. Medication Ordered: Ceftriaxone IV 2 gm/50mL (after blood cultures). Given 06:10 12/23/2016 Michael Mcgee, ER Dx Board Operator Medication Administered: DUONEB [NEB TX] (IPRATROPIUM-ALBUTEROL), Dose: 1 unit dose Nebulizer Neb TX. Medication Ordered: DuoNeb Neb Tx 1 unit dose (NOW). Start 06:33 12/23/2016 Felipe Verma RLaurenN. Medication Administered: AZITHROMYCIN [IVPB], Dose: 500 mg IVPB over 1 hour(s), Rate: 255 mL/hr, Dispensed: 260 mL bag, Site: #1 right AC. Medication Ordered: Azithromycin IV 500 mg/250 mL (NOW). Given 08:17 12/23/2016 Sho Tidwell R.N. Medication Administered: ACETAMINOPHEN [PO] (APAP), Dose: 1000 mg Capsules PO. Medication Ordered: Acetaminophen PO 1,000 mg (NOW). Start 10:07 12/23/2016 Sho Tidwell RLaurenNLauren Medication Administered: LEVOPHED [IV DRIP] (NOREPINEPHRINE BITARTRATE), Dose: 0.5 mcg Drip IV over 1 hour(s), Rate: 0.5 mcg/min, Dispensed: 250 mL bag, Site: #3 left EJ. Medication Ordered: Levophed Drip IV : 0.5-12 mcg/min.
--- NOTE | 2016-12-23 18:37 | ED MED RECONCILIATION SUMMARY ---
Patient: MARTA GREGORY Medication Reconciliation Report [facility] VisitID: [id number] [address] [place] [address] 36y, F Registration Date/Time: 12/23/2016 Weight: 66.2 kg Height/Length: 69 in. BMI: 21.6 ALLERGIES: No Known Drug Allergy The patient's Home Medications are listed below: NONE. The source(s) of the original Home Medication information: patient The following Medications were given to the patient in the Emergency Department: IV NS IV Fluids bolus 0, then 1000 mL/hr, administered: 12/23/2016 4:51:00 AM Zofran [IVP] IVP 4 mg, administered: 12/23/2016 4:52:00 AM Dilaudid [IVP] IVP 1 mg, administered: 12/23/2016 4:54:00 AM Dilaudid [IVP] IVP 0.5 mg, administered: 12/23/2016 5:30:00 AM Duoneb [Neb Tx] Neb TX 1 unit dose, administered: 12/23/2016 6:10:00 AM Ceftriaxone [IVPB] IVPB bolus 0, then 2 gm 150 mL/hr, administered: 12/23/2016 6:10:00 AM Azithromycin [IVPB] IVPB bolus 0, then 500 mg 255 mL/hr, administered: 12/23/2016 6:33:00 AM Acetaminophen [PO] PO 1000 mg, administered: 12/23/2016 8:17:00 AM Levophed [IV DRIP] Drip IV bolus 0, then 0.5 mcg 0.5 mcg/min, administered: 12/23/2016 10:07:00 AM The following Medications were prescribed to the patient: None.
--- NOTE | 2016-12-23 18:37 | ED MED RECONCILIATION SUMMARY ---
Patient: MARTA GREGORY Medication Reconciliation Report [facility] VisitID: [id number] [address] [place] [address] 36y, F Registration Date/Time: 12/23/2016 Weight: 66.2 kg Height/Length: 69 in. BMI: 21.6 ALLERGIES: No Known Drug Allergy The patient's Home Medications are listed below: NONE. The source(s) of the original Home Medication information: patient The following Medications were given to the patient in the Emergency Department: IV NS IV Fluids bolus 0, then 1000 mL/hr, administered: 12/23/2016 4:51:00 AM Zofran [IVP] IVP 4 mg, administered: 12/23/2016 4:52:00 AM Dilaudid [IVP] IVP 1 mg, administered: 12/23/2016 4:54:00 AM Dilaudid [IVP] IVP 0.5 mg, administered: 12/23/2016 5:30:00 AM Duoneb [Neb Tx] Neb TX 1 unit dose, administered: 12/23/2016 6:10:00 AM Ceftriaxone [IVPB] IVPB bolus 0, then 2 gm 150 mL/hr, administered: 12/23/2016 6:10:00 AM Azithromycin [IVPB] IVPB bolus 0, then 500 mg 255 mL/hr, administered: 12/23/2016 6:33:00 AM Acetaminophen [PO] PO 1000 mg, administered: 12/23/2016 8:17:00 AM Levophed [IV DRIP] Drip IV bolus 0, then 0.5 mcg 0.5 mcg/min, administered: 12/23/2016 10:07:00 AM The following Medications were prescribed to the patient: None.
--- NOTE | 2016-12-23 20:10 | NUR ---
WHEN PT FIRST ARRIVED TO THE FLOOR HER BLOOD PRESSURE WAS INTIALLY 74/59. NOREPINEPHRINE WAS STARTED IN THE ER AT 0.5 PT WAS TITRATED UP TO 40 CC/HR AND THEN TITRATED DOWN TO 20CC/HR ( 5.33 MCG ) LAST PRESSURE WAS 87/47 . PT WAS GIVEN TORADOL AND DILAUDID FOR PAIN. PLACED A WEINBERG CATH WITH 700 CC OF CLEAR YELLOW URINE. ENCOURAGE PT TO DRINK PLENTY OF FLUIDS TO THIN SECRETIONS IN ORDER TO EXPECTORATE. PT HAS BEEN VERY ANXIOUS AT TIMES AND WAS GIVEN ATIVAN 0.5 MG IV WHICH GREATLY IMPROVED HER DISPOSITION.
[2016-12-24] VITALS (20 sets, daily range): BP systolic 88–125; BP diastolic 43–69
--- NOTE | 2016-12-24 04:30 | NUR ---
Pt very anxious with pain requiring Morphine/Oxycodone/Ativan which was increased. Pt will awaken out of a sleep and yell out "help me I can't do this I'm hurting!!" Pt will sit on edge of bed impulsively setting bed alarm off HR has been 108, rate increased to 120-130, resp 40's SBP 120 MAP 80's, during anxiety episode. SBP 90-102 MAP 60 otherwise. Levophed has been titrated t/o shift to maintain MAP 65 or greater. Productive cough with thick brown sputum. Ativan dose increased. Pain meds given. Pt asleep at this time.
--- NOTE | 2016-12-24 07:46 | Progress Note ---
Subjective General Note Date: December 24, 2016 Admission Date: December 23, 2016 Hospital Day: 2 PCP: None Status: Inpatient Advanced Directive: FULL CODE Room: 305 Brief History: The patient is a 36-year-old white female with a significant past medical history of trigeminal neuralgia, sciatica, cervical strain, who presented to [facility] emergency department on the day of admission secondary to complaints of shortness of breath. [facility] ER evaluation was consistent with bilateral lower lobe pneumonia-rule out sepsis. Secondary to the above, the patient was admitted by Tyler Pelayo M.D. for further evaluation and treatment. For other history present illness, past medical history, family history, social history, review of systems, and admission physical examination please see the patient's history and physical examination and ER visit note in the patient's medical record. Subjective: The patient complains of persistent right-sided chest pain. Status improved. Denies nausea or vomiting. No other specific complaints. No significant shortness of breath Patient requests: None Medications and Allergies Medications Current Medications Sig/Sophie Start time Last Medication Dose Route Stop Time Status Admin Azithromycin 500 MG DAILY 12/24 09 AC Sodium Chloride 250 ML IV 12/25 1000 Ceftriaxone Sodium/ 50 ML DAILY 12/24 09 AC Dextrose IV Lorazepam 1 MG Q2H PRN 12/24 0245 AC 12/24 IV 0300 Oxycodone HCl See Dose Q4H PRN 12/23 2000 AC 12/24 Insts (1) PO 0157 Magnesium Chloride 535 MG TID 12/23 1400 AC 12/23 PO 2228 Magnesium Sulfate 2 GM NOW STA 12/23 1243 CAN IV 12/23 1244 Pantoprazole Sodium 40 MG DAILY@0600 12/23 1115 AC 12/24 IV 0612 Enoxaparin Sodium 40 MG QAM 12/23 1105 AC 12/23 SC 1252 Acetaminophen 650 MG Q4H PRN 12/23 1100 AC PO Al Hydrox/Mg Hydrox/ 15 ML Q1H PRN 12/23 1100 AC Simethicone PO Atropine Sulfate 0.5 MG Q3MIN PRN 12/23 1100 AC IV Lidocaine HCl See Dose ONCE PRN 12/23 1100 AC Insts (2) IV Magnesium Hydroxide 10 ML DAILY PRN 12/23 1100 AC PO Morphine Sulfate 1 MG Q2H PRN 12/23 1100 AC 12/23 IV 2247 Morphine Sulfate 2 MG Q3M PRN 12/23 1100 AC 12/24 IV 0212 Nitroglycerin 0.4 MG Q5M PRN 12/23 1100 AC SL Ondansetron HCl 4 MG Q6H PRN 12/23 1100 AC PO Norepinephrine 4 MG ASDIRECTED 12/23 0945 AC 12/23 Bitartrate IV 2200 Dextrose/Water 250 ML Sodium Chloride 1,000 ML ASDIRECTED 12/23 0900 AC IV Ondansetron HCl 4 MG Q4H PRN 12/23 0845 AC IV Dose Instructions: (1)Oxycodone HCl: 5 - 10 MG (2)Lidocaine HCl: 1.5 MG/KG Allergies Coded Allergies: NKA (01/12/16) Physical Exam Vital Signs / I&Os Vital Signs Date Time Temp Pulse Resp B/P Pulse O2 O2 Flow FiO2 Ox Delivery Rate 12/24 0715 119 26 105/59 91 Room Air 12/24 0638 101.3 121 29 93/45 30 Room Air 12/24 0500 116 23 93/45 93 Room Air 12/24 0415 117 23 100/52 91 Room Air 12/24 0400 88/57 12/24 0313 119 22 92/43 92 Room Air 12/24 0213 120 24 121/69 97 Room Air 12/24 0134 102 24 97/52 97 12/24 0023 104 25 95/52 96 12/23 2309 106 28 95/51 99 Room Air 12/23 2207 98.8 12/23 2205 82/42 12/23 2203 110 28 95 12/23 2115 107 26 105/61 95 12/23 2015 107 35 90/64 95 12/23 1913 102 24 94/55 95 12/23 1805 99.0 108 31 89/47 95 Room Air 12/23 1714 99 23 89/49 97 Nasal 2.0 Cannula 12/23 1611 98.4 112 23 98/51 98 Nasal 2.0 Cannula 12/23 1516 101 21 106/66 97 Nasal 2.0 Cannula 12/23 1412 106 24 101/55 98 Nasal 2.0 Cannula 12/23 1400 2.0 12/23 1317 111 19 101/61 97 Nasal 2.0 Cannula 12/23 1246 119 31 83/43 97 Nasal 2.0 Cannula 12/23 1235 2.0 12/23 1217 108 35 93/46 98 Nasal 2.0 Cannula 12/23 1130 107 21 96/53 98 Nasal 2.0 Cannula 12/23 1100 85/49 12/23 1044 114 20 71/42 96 Nasal 2.0 Cannula 12/23 1030 114 29 84/47 96 Nasal 2.0 Cannula 12/23 1024 115 20 82/47 95 Nasal 2.0 Cannula 12/23 1005 99.0 122 29 74/44 93 Nasal 2.0 Cannula 12/23 1000 115 32 83/42 95 Nasal 2.0 Cannula I&O 12/24 0000 12/23 1600 12/23 0800 Intake Total 3398 240 Output Total 1500 1295 Balance 1898 -1055 General Appearance Oriented X3, Cooperative, No acute distress, mild lethargy Lungs Normal air movement, basilar rales bilaterally. No rubs noted. Cardiovascular Regular rate and rhythm, Normal S1 and S2, mild tachycardia Abdomen Normal bowel sounds, Soft, No tenderness Extremities No cyanosis, No clubbing, No edema Neurological Grossly normal Psych/Mental Status Mental status normal, Mood normal, slightly lethargic this a.m. LAB Results Laboratory Tests 12/24 12/24 12/23 12/23 12/23 0300 0300 2035 1140 1140 Chemistry Plasma Sodium (136 - 145 mmol/L) 141 139 Plasma Potassium (3.5 - 5.1 mmol/L) 4.2 2.8 Plasma Chloride (98 - 107 mmol/L) 110 105 CO2 (Enzymatic) (21 - 32 mmol/L) 21 18 BUN (7 - 18 mg/dL) 21 28 Creatinine (0.6 - 1.3 mg/dL) 1.0 1.7 Est GFR ( Amer) (mL/min) >60 43.81 Est GFR (Non-Af Amer) (mL/min) >60 36.14 Glucose (70 - 110 mg/dL) 113 127 Lactic Acid (0.4 - 2.0 mmol/L) 0.8 Plasma Calcium (8.5 - 10.1 mg/dL) 7.5 6.9 Plasma Magnesium (1.8 - 2.4 mg/dL) 1.4 Total Bilirubin (0.0 - 1.0 mg/dL) 0.4 0.4 AST (15 - 37 U/L) 16 12 ALT (12 - 78 U/L) 17 12 Alkaline Phosphatase (46 - 116 U/L) 140 89 Creatine Kinase (24 - 260 U/L) 70 85 105 Total Protein (6.4 - 8.2 g/dL) 6.1 5.8 Albumin (3.3 - 5.0 g/dL) 2.0 2.0 Coagulation INR (0.8 - 1.2) 1.1 APTT (24 - 34 SECONDS) 37 Hematology WBC (4.5 - 11.5 K/uL) 25.0 RBC (4.00 - 5.20 M/uL) 3.54 Hgb (12.0 - 16.0 gm/dL) 10.4 Hct (36.0 - 46.0 %) 31.7 MCV (80 - 100 fL) 90 MCH (26 - 34 pg) 29 RDW (11.6 - 14.8 %) 16.6 Neut % (Auto) (50 - 75 %) 49 Lymph % (Auto) (25 - 40 %) 8 Quay % (Auto) (3 - 14 %) 0 Eos % (Auto) (0 - 4 %) 0 Baso % (Auto) (0 - 2 %) 0 Band Neutrophils % (0 - 8 %) 43 Metamyelocytes % (0 - 1 %) 0 Myelocytes (0 - 1 %) 0 Other Cell Type 0 Plt Count, EDTA (150 - 400 K/uL) 216 Anisocytosis (manual) 1+ Tear Drop Cells 1+ Helmet Cells 1+ PUBS MCHC (31 - 37 g/dL) 33 12/23 12/23 1105 0754 Chemistry Lactic Acid (0.4 - 2.0 mmol/L) 0.8 Creatine Kinase Cancelled Assessment and Plan Problem List 1. Pneumonia Plan -patient with findings of pneumococcal pneumonia with pneumococcal sepsis -Status improved -Patient weaned from pressor agents -Rocephin 2 g IV daily -Monitor 2. Sepsis Status Acute Onset Date 12/23/16 Plan -patient with findings of pneumococcal sepsis -IV fluid support/pressors required, patient weaned from pressor agents -Status improving -Continue Rocephin 2 g IV daily 3. Hypokalemia Status Acute Onset Date Unknown Plan -Potassium improved -potassium 4.2 -Monitor 4. Hypomagnesemia Status Acute Onset Date Unknown Plan -patient with findings of hypomagnesemia -IV/oral supplementation, Slow-Mag one by mouth 3 times a day -Recheck magnesium level in a.m. 5. UTI (urinary tract infection) Status Acute Onset Date Unknown Plan -findings of UTIwith gram-negative ian -Await final urine C&S -Rocephin 2 g IV daily 6. Nicotine dependence Status Chronic Onset Date Unknown Plan -patient with findings of nicotine dependence-s -NicoDerm patch when necessary Current status: Critical, unstable Anticipated discharge date: Anticipated discharge in 3-4 days Anticipated discharge placement: Home Patient care time: Time spent in chart review, patient interview, physical exam, CPOE, and care documentation: 35 minutes Visit to patient today: 1 Complexity of care: High E&M Codes Rounding: Inpt-High/[id number]
--- NOTE | 2016-12-24 16:42 | NUR ---
PT HAS BEEN SLEEPING INTERMITTENTLY THROUGHOUT THE DAY. WHEN MOVING IN BED OR IN ROOM, PT IS EXTREMELY PAINFUL. MEDICATED WITH OXYCODONE/MORPHINE WITH RELIEF. NEW ORDER REC'D FOR TORADOL, RX SEEMS TO BE EFFECTIVE. PT NOW DOZING. LORAZEPAM GIVEN X1 WITH RELIEF AFTER SEVERE COUGHING SPELL. PT COUGHING UP BLOOD-TINGED SPUTUM. WEANED OFF OF LEVOPHED, BP NOW 94/53, HR LOW 100'S. LEFT EXTERNAL JUGULAR REMOVED AFTER IT INFILTRATED. LENARD DC'D. AWAITING VOID. WCTM.
--- NOTE | 2016-12-24 22:02 | NUR ---
PT IS ALERT AND ORIENTED X3. SLEEPING BUT AROUSES EASILY FOR ASSESSMENT. MEDICATED WITH PO OXYCODONE FOR PAIN - RATED AT A 6/10 TO RIGHT CHEST WALL, DESCRIBED SHARP - INTERMITTANTLY SPIKING TO A 9/10. NO OTHER COMPLAINTS OF PAIN. NO NAUSEA. RESPIRATIONS IN THE 20 TO LOW 30'S. ROOM AIR SATS AT 95%. ABLE TO CARRY ON FULL SENTENCES. NO SOB NOTED - NO DISTRESS NOTED. TELE SHOWS SINUS 106. IV TO LW UNREMARKABLE AND INFUSING AT 100/HR. IV TO RAC UNREMARKABLE AND SALINE LOCKED. CALL LIGHT WITHIN REACH. NO FURTHER REQUESTS AT THIS TIME.
[2016-12-25 01:14] VITALS: BP 113/67
--- NOTE | 2016-12-25 01:26 | NUR ---
TEMP AT 100.3, HEART RATE AT 112 - PT MEDICATED WITH PO TYLENOL - WILL CONTINUE TO MONITOR.
[2016-12-25 05:41] VITALS: BP 110/59
--- NOTE | 2016-12-25 06:27 | NUR ---
NO NOTABLE CHANGES ON OFFBEARER. PAIN CONTROLLED WITH PO OXYCODONE AND IV TORADOL ALLOWING PT TO SLEEP. ENCOURAGED PT TO COUGH AND DEEP BREATH. PT UP TO BEDSIDE COMODE WITH 1 PERSON ASSIST - PT COMPLAINT OF SLIGHT DIZZINESS. NO REQUESTS THIS AM.
[2016-12-25 10:14] VITALS: BP 105/63
[2016-12-25] MEDS ORDERED: LEVAQUIN750 MG PO (10:59)
--- NOTE | 2016-12-25 11:01 | Provider's Discharge Care Plan ---
Problem, Goal, Plan Problem List 1. Pneumonia Goals: Improve disease control, Prevent disease progress Instructions: Follow up as directed, Take meds as directed, You have been advised to remain in the hospital for ongoing medical care. We feel that your health is at risk by leaving before your medical condition is appropriately treated. We recommend you follow-up with your physician tomorrow.
--- NOTE | 2016-12-25 11:06 | Discharge Summary ---
Discharge Summary Report Admit Date 12/23/16 Discharge Date 12/25/16 Admission Diagnosis 1. Pneumonia 2. Pneumococcal sepsis 3. Nicotine dependence-smoking Discharge Diagnosis 1. Pneumonia 2. Pneumococcal sepsis 3. Nicotine dependence-smoking Brief History The patient is a 36-year-old white female with a significant past medical history of trigeminal neuralgia, sciatica, cervical strain, who presented to [facility] emergency department on the day of admission secondary to complaints of shortness of breath. [facility] ER evaluation was consistent with bilateral lower lobe pneumonia-rule out sepsis. Secondary to the above, the patient was admitted by Tyler Pelayo M.D. for further evaluation and treatment. For other history present illness, past medical history, family history, social history, review of systems, and admission physical examination please see the patient's history and physical examination and ER visit note in the patient's medical record. Hospital Course The following problems and their management were noted during the patient's hospitalization: 1. Pneumonia The patient presented with findings of bilateral pneumonia. This is associated with right-sided pleuritic chest pain. Blood cultures positive for pneumococcus 4. Patient treated with IV antimicrobials. Patient noted to have initial hypotension with findings suggestive of pneumococcal sepsis. Symptoms improved significantly by the day of discharge. The patient elected to leave AMA. A long discussion was undertaken with the patient regarding the severity ofher illness and possible increased morbidity and even mortality by leaving the hospital prior to completion of appropriate medical therapy. Despite the above discussion and the patient's knowledge of possible by early discharge she has decided to leave AMA. The patient was given Levaquin 750 mg by mouth daily on discharge. She has been told this is inadequate therapy. 2. Pneumococcal sepsis See above. The patient required vigorous IV fluid support and pressor agents to maintain blood pressure. Status much improved by day of discharge. 3. Nicotine dependence-smoking The patient underwent smoking cessation education. Recommended smoking abstinence post discharge General Appearance Alert, Oriented X3, No acute distress Lungs Basilar rales, scattered rhonchi. No rubs noted Cardiovascular Regular Rate, Normal S1, Normal S2, mild tachycardia Abdomen Normal bowel sounds, Soft, No tenderness Neurological Grossly normal Psych/Mental Status Mental status NL, mood depressed Lab/Imaging Laboratory Tests 12/25 4125 Chemistry Plasma Sodium (136 - 145 mmol/L) 143 Plasma Potassium (3.5 - 5.1 mmol/L) 3.6 Plasma Chloride (98 - 107 mmol/L) 111 CO2 (Enzymatic) (21 - 32 mmol/L) 20 BUN (7 - 18 mg/dL) 12 Creatinine (0.6 - 1.3 mg/dL) 0.7 Est GFR ( Amer) (mL/min) >60 Est GFR (Non-Af Amer) (mL/min) >60 Glucose (70 - 110 mg/dL) 91 Plasma Calcium (8.5 - 10.1 mg/dL) 7.5 Hematology WBC (4.5 - 11.5 K/uL) 10.8 RBC (4.00 - 5.20 M/uL) 3.06 Hgb (12.0 - 16.0 gm/dL) 9.0 Hct (36.0 - 46.0 %) 27.0 MCV (80 - 100 fL) 88 MCH (26 - 34 pg) 29 RDW (11.6 - 14.8 %) 16.5 Neut % (Auto) (50 - 75 %) 52 Lymph % (Auto) (25 - 40 %) 16 Barry % (Auto) (3 - 14 %) 1 Eos % (Auto) (0 - 4 %) 1 Baso % (Auto) (0 - 2 %) 0 Band Neutrophils % (0 - 8 %) 30 Metamyelocytes % (0 - 1 %) 0 Myelocytes (0 - 1 %) 0 Other Cell Type 0 Plt Count, EDTA (150 - 400 K/uL) 227 Anisocytosis (manual) 2+ Alba Cells 1+ PUBS MCHC (31 - 37 g/dL) 33 Discharge Instructions/Meds For other recommendations regarding discharge diet, activity, followup, and discharge medications please see the patient's discharge instructions. Patient opted to leave AMA Discharge condition: Fair, unstable Greater than 30 min. was spent in the patient's discharge preparation including discharge interview and physical examination, progress note, discharge instructions, and discharge summary. Patient opted to leave AMA. I encouraged the patient to see her family physician within 24 hours. I stated that she is at extreme risk due to untreated medical conditions. Early departure without full treatment of her medical condition could result in severe morbidity and even mortality. Even though the patient is aware of these risks she opted to leave AMA. The patient was interviewed and examined on the day of discharge. E&M Codes Discharge: Inpt >30 min spent/[id number]
--- NOTE | 2016-12-25 11:08 | NUR ---
AT APPROXIMATELY 1030 PATIENT HAD VISITOR AND BECAME INCREASINGLY AGGITATED STATING SHE HAS TO LEAVE RIGHT NOW. SAID TO TAKE HER IV OUT RIGHT NOW OR SHE WILL PULL IT OUT. NOTIFIED MD SHARIF CAME TO DISCUSS WITH PATIENT TO TRY AND GET HER TO STAY BUT SHE IS INTENT ON LEAVING, [facility] TO CALL HER FOR ADVOCATE SERVICES, IV REMOVED AND SANDY APPLIED, WROTE SCRIPT FOR ABX, GIVEN TO PATIENT WITH INSTRUCTIONS TO FILL AND START TOMORROW A.M.
--- NOTE | 2016-12-25 11:25 | DIAGNOSTIC IMAGING REPORT ---
PROCEDURE: XR CHEST 1 VIEW INDICATION: pneumonia, r/o effusion/empyema TECHNIQUE: Portable AP view 10:49 a.m. COMPARISON: Chest 12/23/16 FINDINGS: Increase in bibasilar infiltrates and pleural effusions. IMPRESSION: 1. Increase in bibasilar infiltrates and pleural effusions.
--- NOTE | 2016-12-25 11:27 | NUR ---
ESCORTED OUT BY FACILITY TECH IN WHEEL CHAIR.
== END 2016-12-25 11:30 | disposition left against medical advice (07) | DRG 720 ==
LOC: ED SRH 04:18 → TRANS SRH 07:49 → CC SRH 09:52
PROVIDERS: ADMIT Emergency Medicine
DX: A40.3 Sepsis due to Streptococcus pneumoniae (principal); J13 Pneumonia due to Streptococcus pneumoniae; R65.20 Severe sepsis without septic shock; N17.9 Acute kidney failure, unspecified; N10 Acute pyelonephritis; N30.00 Acute cystitis without hematuria; E87.6 Hypokalemia; E83.42 Hypomagnesemia; Z71.6 Tobacco abuse counseling; F17.210 Nicotine dependence, cigarettes, uncomplicated